=== PATIENT | male | born 1990 | race Caucasian/White ===

== ENCOUNTER 2024-12-05 23:46 | Emergency (ER) | payer MEDICAID ==
[~2024-12-05] VITALS: Ht 170.2 cm; Wt 82.0 kg
[2024-12-05 23:51] VITALS: O2SAT 96
[2024-12-06 00:08] LABS: BASOPHILS % 0.5 % (0.0-2.0); HEMOGLOBIN. 17.2 g/dL (14.0-18.0); LYMPHOCYTES % 17.6 % (20.0-50.0); MEAN CORPUSCULAR HEMOGLOBIN 29.1 pg (28.0-32.0); MEAN CORPUSCULAR HGB CONC 33.1 g/dL (31.0-37.0); MEAN PLATELET VOLUME 8.2 fl (7.4-10.4); MONOCYTES % 8.8 % (2.0-8.0); NEUTROPHILS % 72.1 % (40.0-76.0); PLATELET 214 x1000/uL (130-400); RED CELL DISTRIBUTION WIDTH 15.1 % (11.6-14.6); WHITE BLOOD COUNT 8.6 x1000/uL (4.5-11.0)
[2024-12-06 00:16] LABS: CHLORIDE 103 mEq/L (98-107); POTASSIUM 3.6 mEq/L (3.5-5.1); SODIUM 135 mEq/L (136-145)
[2024-12-06 00:17] LABS: CARBON DIOXIDE 22 mEq/L (21-32)
[2024-12-06 00:18] LABS: CALCIUM 9.2 mg/dL (8.7-10.4)
[2024-12-06 00:23] LABS: CREATININE 0.9 mg/dL (0.6-1.3); ETHANOL BLOOD < 10 mg/dL (<10); GLUCOSE 121 mg/dL (70-105); UREA NITROGEN BLOOD 11 mg/dL (9-23)
[2024-12-06 00:24] LABS: ACETAMINOPHEN < 2 ug/mL (10-30)
[2024-12-06 00:29] LABS: TROPONIN I HIGH SENSITIVITY 70 ng/L (3.0-53)
[2024-12-06 00:58] VITALS: TEMP 37.4
[2024-12-06] MEDS ORDERED: ASPIRIN 325MG EC TABLET PO ONE (01:00)
[2024-12-06] MEDS ORDERED: HEPARIN 25,000 UNITS PREMIX 250 ML IV PRN (01:00)
[2024-12-06] MEDS ORDERED: HEPARIN 5000 UNITS/ML VIAL IV SCH (01:00)
[2024-12-06] MEDS ORDERED: SODIUM CHLORIDE 0.9% 1,000 ML IV ONE (01:00)
[2024-12-06] MEDS ORDERED: HEPARIN 5000 UNITS/ML VIAL IV PRN ×2 (01:00)
[2024-12-06 01:25] LABS: CLARITY URINE CLEAR (CLEAR); COLOR URINE YELLOW (YELLOW); GLUCOSE URINE NEGATIVE (NEGATIVE); KETONES URINE NEGATIVE (NEGATIVE); LEUKOCYTE ESTERASE URINE NEGATIVE (NEGATIVE); NITRITE URINE NEGATIVE (NEGATIVE); OCCULT BLOOD URINE TRACE (NEGATIVE); PH URINE 6.5 (4.5-8.0); PROTEIN URINE NEGATIVE (NEGATIVE); SPECIFIC GRAVITY URINE 1.004 (1.005-1.030); UROBILINOGEN URINE 0.2 E.U./dL (0.2-1.0)
[2024-12-06 01:35] LABS: *AMPHETAMINES SCREEN URINE PRESUMPTIVE POSITIVE (NEGATIVE)
[2024-12-06 01:36] LABS: *BARBITURATES SCREEN URINE NEGATIVE (NEGATIVE); *BENZODIAZEPINES SCREEN URINE NEGATIVE (NEGATIVE); *COCAINE SCREEN URINE NEGATIVE (NEGATIVE); CANNABINOID URINE SCREEN NEGATIVE (NEGATIVE); ECSTASY MDMA SCREEN URINE NEGATIVE (NEGATIVE); METHADONE URINE SCREEN NEGATIVE (NEGATIVE); OPIATES URINE SCREEN NEGATIVE (NEGATIVE); PHENCYCLIDINE URINE SCREEN NEGATIVE (NEGATIVE)
[2024-12-06 01:44] VITALS: BP 157/113; PULSE 113; RESP 20; O2SAT 96
[2024-12-06 02:31] LABS: D-DIMER 0.29 mg/L FEU (<0.50); PARTIAL THROMBOPLASTIN TIME 27.7 sec (23.4-31.0); PROTHROMBIN TIME 11.2 sec (9.6-11.0)
[2024-12-06 03:51] LABS: RBC URINE 0-2 /hpf (0-2); SQUAMOUS EPITHELIAL CELL URINE FEW /lpf (RARE/1+); WBC URINE 0-2 /hpf (0-2)
[2024-12-06 03:52] LABS: BACTERIA URINE 2+
== END 2024-12-06 01:48 | disposition left against medical advice (07) ==
LOC: ER 12-06 00:36
DX: I21.4 Non-ST elevation (NSTEMI) myocardial infarction (principal); F15.10 Other stimulant abuse, uncomplicated; Z79.899 Other long term (current) drug therapy
CPT/HCPCS: 36415; 71045; 80048; 80305; 80307; 80320; 80329; 81003; 83880; 84484; 85025; 85379; 93005; 99291; G0480